=== PATIENT | male | born 1965 | race Asian ===

== ENCOUNTER 2020-05-04 18:22 | Inpatient (IN) | payer OTHER, SELFPAY ==
[~2020-05-04] VITALS: Ht 170.2 cm; Wt 75.7 kg
[2020-05-04 18:35] VITALS: BP_SYST 166
[2020-05-04 19:41] LABS: BASOPHILS % (AUTO) 0.3 % (0.0-2.0); HEMATOCRIT 46.7 % (36-54); HEMOGLOBIN 15.8 g/dL (14.0-18.0); LYMPHOCYTES # (AUTO) 0.8 K/uL (1.0-5.5); LYMPHOCYTES % (AUTO) 12.6 % (20.5-51.5); MEAN CORPUSCULAR HEMOGLOBIN 29 pg (27-31); MEAN CORPUSCULAR HGB CONC 34 % (32-36); MEAN CORPUSCULAR VOLUME 85 fL (79.0-98.0); MONOCYTES # (AUTO) 0.5 K/uL (0.0-1.0); MONOCYTES % (AUTO) 7.5 % (1.7-9.3); NEUTROPHILS % (AUTO) 79.6 % (40.0-70.0); PLATELET COUNT (AUTO) 254 K/uL (130-430); RED BLOOD CELL COUNT(AUTO) 5.51 MIL/uL (4.2-6.2); RED CELL DISTRIBUTION WIDTH 13.2 % (9.0-15.0); WHITE BLOOD COUNT (AUTO) 6.3 K/uL (4.8-10.8)
[2020-05-04 19:48] LABS: CALCIUM 8.9 mg/dL (8.4-11.0); CREATININE 1.19 mg/dL (0.55-1.30); POTASSIUM 3.8 mmol/L (3.5-5.1)
[2020-05-04 19:49] LABS: C-REACTIVE PROTEIN QUANT 6.7 mg/dL (0-0.5)
[2020-05-04 19:55] LABS: ALBUMIN 3.3 g/dL (3.4-4.8); TOTAL BILIRUBIN 0.4 mg/dL (0.0-1.0)
[2020-05-04 20:03] LABS: BILIRUBIN,URINE NEGATIVE (NEGATIVE); BLOOD, URINE 1+ (NEGATIVE); COLOR,URINE YELLOW (YELLOW); GLUCOSE,URINE NEGATIVE (NEGATIVE); KETONES,URINE 1+ (NEGATIVE); LEUKOCYTE ESTERASE ,URINE NEGATIVE (NEGATIVE); NITRITE, URINE NEGATIVE (NEGATIVE); PROTEIN URINE 1+ (NEGATIVE); UROBILINOGEN,URINE 0.2 (0.2-1.0)
[2020-05-04 20:18] LABS: CKMB RELATIVE INDEX 0.4 (0.0-2.9); CREATINE KINASE MB 1.4 ng/mL (0-3.6)
[2020-05-04 20:21] LABS: CLARITY/URINE SLIGHTLY HAZY (CLEAR)
[2020-05-04 20:29] LABS: BACTERIA,URINE FEW /HPF (None Seen); MUCUS,URINE 2+ /LPF (None Seen); RBC,URINE 0-3 /HPF (0-3)
[2020-05-04 20:31] LABS: INR 0.9 (0.80-1.20); PROTHROMBIN TIME 9.4 SECS (9.5-12.5)
[2020-05-04] MEDS: AZITHROMYCIN 500 MG in NS 250 ML IV SCH (22:15)
[2020-05-04] MEDS ORDERED: HYDROcodone/ACETAMIN 5-325 MG TAB (NORCO/ VICODIN) PO PRN (22:15)
[2020-05-04] MEDS ORDERED: MORPHINE 2 MG/ML INJ. SYRINGE IVP PRN (22:15)
[2020-05-04] MEDS: DEXAMETHASONE SOD PHOSPHATE 4 MG/ML VIAL IVP SCH (22:30)
[2020-05-04] MEDS ORDERED: guaiFENesin 200 MG/CODEINE 20 MG/ 10 ML UDC PO PRN (22:30)
[2020-05-04] MEDS ORDERED: AZITHROMYCIN 500 MG/VIAL (ZITHROMAX) IV ONE (22:52)
[2020-05-04] MEDS ORDERED: cefTRIAXone 2 GM VIAL ONE (22:52)
[2020-05-04] MEDS: ENOXAPARIN SODIUM 40 MG/0.4 ML SYRINGE SUBCUT SCH (22:54)
[2020-05-05 01:00] VITALS: BP_SYST 154
[2020-05-05] MEDS: NORMAL SALINE 5 ML DISP.SYRIN IVF SCH ×3 (05:24→21:25)
[2020-05-05 06:42] LABS: CALCIUM 8.1 mg/dL (8.4-11.0); CREATININE 1.11 mg/dL (0.55-1.30); POTASSIUM 3.7 mmol/L (3.5-5.1)
[2020-05-05 06:44] LABS: BASOPHILS % (AUTO) 0.1 % (0.0-2.0); HEMATOCRIT 42.8 % (36-54); HEMOGLOBIN 14.5 g/dL (14.0-18.0); LYMPHOCYTES # (AUTO) 0.4 K/uL (1.0-5.5); LYMPHOCYTES % (AUTO) 6.9 % (20.5-51.5); MEAN CORPUSCULAR HEMOGLOBIN 28 pg (27-31); MEAN CORPUSCULAR HGB CONC 34 % (32-36); MEAN CORPUSCULAR VOLUME 84 fL (79.0-98.0); MONOCYTES # (AUTO) 0.1 K/uL (0.0-1.0); MONOCYTES % (AUTO) 2.3 % (1.7-9.3); NEUTROPHILS # (AUTO) 4.6 K/uL (1.8-7.7); NEUTROPHILS % (AUTO) 90.7 % (40.0-70.0); PLATELET COUNT (AUTO) 254 K/uL (130-430); RED BLOOD CELL COUNT(AUTO) 5.09 MIL/uL (4.2-6.2); WHITE BLOOD COUNT (AUTO) 5.1 K/uL (4.8-10.8)
[2020-05-05 06:48] LABS: ALBUMIN 2.9 g/dL (3.4-4.8); TOTAL BILIRUBIN 0.3 mg/dL (0.0-1.0)
[2020-05-05 07:19] LABS: C-REACTIVE PROTEIN QUANT 6.7 mg/dL (0-0.5)
[2020-05-05 08:51] VITALS: BP_SYST 151
[2020-05-05] MEDS: DEXAMETHASONE SOD PHOSPHATE 4 MG/ML VIAL IVP SCH (09:00)
[2020-05-05] MEDS: ENOXAPARIN SODIUM 40 MG/0.4 ML SYRINGE SUBCUT SCH ×2 (09:00→21:20)
[2020-05-05 11:48] VITALS: BP_SYST 147
[2020-05-05 12:00] VITALS: BP_SYST 150
[2020-05-05 16:37] VITALS: BP_SYST 148
[2020-05-05 21:23] VITALS: BP_SYST 126
[2020-05-05] MEDS: AZITHROMYCIN 500 MG in NS 250 ML IV SCH (21:25)
[2020-05-06 01:42] VITALS: BP_SYST 147
[2020-05-06] MEDS: NORMAL SALINE 5 ML DISP.SYRIN IVF SCH ×3 (05:00→21:20)
[2020-05-06 08:00] VITALS: BP_SYST 136
[2020-05-06] MEDS: ENOXAPARIN SODIUM 40 MG/0.4 ML SYRINGE SUBCUT SCH ×2 (10:06→21:19)
[2020-05-06] MEDS: DEXAMETHASONE SOD PHOSPHATE 4 MG/ML VIAL IVP SCH (10:06)
[2020-05-06 10:21] LABS: CALCIUM 8.5 mg/dL (8.4-11.0); CREATININE 1.26 mg/dL (0.55-1.30); POTASSIUM 3.6 mmol/L (3.5-5.1)
[2020-05-06 10:27] LABS: TOTAL BILIRUBIN 0.2 mg/dL (0.0-1.0)
[2020-05-06] MEDS ORDERED: ASCORBIC ACID 500 MG TABLET PO ONE (12:00)
[2020-05-06] MEDS ORDERED: CHOLECALCIFEROL (VITAMIN D3) 5,000 UNIT TABLET PO ONE (12:00)
[2020-05-06 12:16] VITALS: BP_SYST 136
[2020-05-06 16:18] VITALS: BP_SYST 144
[2020-05-06 20:00] VITALS: BP_SYST 141
[2020-05-06 21:47] VITALS: BP_SYST 144
[2020-05-06] MEDS ORDERED: AZITHROMYCIN 500 MG/VIAL (ZITHROMAX) IV ONE (21:48)
[2020-05-06] MEDS: AZITHROMYCIN 500 MG in NS 250 ML IV SCH (22:46)
[2020-05-07 00:20] VITALS: BP_SYST 132
[2020-05-07] MEDS: NORMAL SALINE 5 ML DISP.SYRIN IVF SCH ×3 (06:14→23:26)
[2020-05-07 07:50] VITALS: BP_SYST 138
[2020-05-07] MEDS: CHOLECALCIFEROL (VITAMIN D3) 5,000 UNIT TABLET PO SCH (07:57)
[2020-05-07] MEDS: ENOXAPARIN SODIUM 40 MG/0.4 ML SYRINGE SUBCUT SCH ×2 (07:57→21:00)
[2020-05-07] MEDS: ASCORBIC ACID 500 MG TABLET PO SCH (07:57)
[2020-05-07] MEDS: DEXAMETHASONE SOD PHOSPHATE 4 MG/ML VIAL IVP SCH (07:57)
[2020-05-07 10:51] LABS: HEMATOCRIT 44.5 % (36-54); HEMOGLOBIN 14.7 g/dL (14.0-18.0); LYMPHOCYTES # (AUTO) 0.3 K/uL (1.0-5.5); LYMPHOCYTES % (AUTO) 2.3 % (20.5-51.5); MEAN CORPUSCULAR HEMOGLOBIN 28 pg (27-31); MEAN CORPUSCULAR HGB CONC 33 % (32-36); MEAN CORPUSCULAR VOLUME 86 fL (79.0-98.0); MONOCYTES # (AUTO) 0.9 K/uL (0.0-1.0); MONOCYTES % (AUTO) 7.2 % (1.7-9.3); NEUTROPHILS # (AUTO) 11.5 K/uL (1.8-7.7); NEUTROPHILS % (AUTO) 90.5 % (40.0-70.0); PLATELET COUNT (AUTO) 382 K/uL (130-430); RED CELL DISTRIBUTION WIDTH 13.1 % (9.0-15.0); WHITE BLOOD COUNT (AUTO) 12.7 K/uL (4.8-10.8)
[2020-05-07 10:54] LABS: CALCIUM 8.1 mg/dL (8.4-11.0); CREATININE 1.16 mg/dL (0.55-1.30); POTASSIUM 3.7 mmol/L (3.5-5.1); TOTAL BILIRUBIN 0.3 mg/dL (0.0-1.0)
[2020-05-07 12:18] VITALS: BP_SYST 130
[2020-05-07 16:06] VITALS: BP_SYST 147
[2020-05-07 20:00] VITALS: BP_SYST 130
[2020-05-07] MEDS: AZITHROMYCIN 500 MG in NS 250 ML IV SCH (23:26)
[2020-05-08] MEDS: NORMAL SALINE 5 ML DISP.SYRIN IVF SCH ×3 (05:27→22:45)
[2020-05-08] MEDS: ASCORBIC ACID 500 MG TABLET PO SCH (09:00)
[2020-05-08] MEDS: CHOLECALCIFEROL (VITAMIN D3) 5,000 UNIT TABLET PO SCH (09:00)
[2020-05-08] MEDS: ENOXAPARIN SODIUM 40 MG/0.4 ML SYRINGE SUBCUT SCH ×2 (09:00→21:00)
[2020-05-08] MEDS: DEXAMETHASONE SOD PHOSPHATE 4 MG/ML VIAL IVP SCH (09:00)
[2020-05-08 11:27] LABS: ALBUMIN 2.8 g/dL (3.4-4.8); CREATININE 1.11 mg/dL (0.55-1.30); POTASSIUM 3.7 mmol/L (3.5-5.1); TOTAL BILIRUBIN 0.2 mg/dL (0.0-1.0)
[2020-05-08 12:34] VITALS: BP_SYST 131
[2020-05-08 16:05] VITALS: BP_SYST 144
[2020-05-08 20:00] VITALS: BP_SYST 138
[2020-05-08] MEDS: AZITHROMYCIN 500 MG in NS 250 ML IV SCH (22:45)
[2020-05-09] MEDS: NORMAL SALINE 5 ML DISP.SYRIN IVF SCH ×3 (05:09→21:21)
[2020-05-09 08:00] VITALS: BP_SYST 147
[2020-05-09 09:57] LABS: CALCIUM 8.2 mg/dL (8.4-11.0); CREATININE 1.06 mg/dL (0.55-1.30); POTASSIUM 4.2 mmol/L (3.5-5.1); TOTAL BILIRUBIN 0.4 mg/dL (0.0-1.0)
[2020-05-09 10:10] LABS: BILIRUBIN,DIRECT 0.1 mg/dL (0.0-0.3)
[2020-05-09] MEDS: ASCORBIC ACID 500 MG TABLET PO SCH (10:12)
[2020-05-09] MEDS: ENOXAPARIN SODIUM 40 MG/0.4 ML SYRINGE SUBCUT SCH ×2 (10:12→21:35)
[2020-05-09] MEDS: CHOLECALCIFEROL (VITAMIN D3) 5,000 UNIT TABLET PO SCH (10:12)
[2020-05-09] MEDS: DEXAMETHASONE SOD PHOSPHATE 4 MG/ML VIAL IVP SCH (10:12)
[2020-05-09 11:22] LABS: C-REACTIVE PROTEIN QUANT 1.2 mg/dL (0-0.5)
[2020-05-09 12:01] VITALS: BP_SYST 123
[2020-05-09 16:00] VITALS: BP_SYST 115
[2020-05-09 17:10] VITALS: BP_SYST 123
[2020-05-09 20:00] VITALS: BP_SYST 135
[2020-05-10] MEDS: NORMAL SALINE 5 ML DISP.SYRIN IVF SCH ×3 (05:50→22:27)
[2020-05-10 08:00] VITALS: BP_SYST 138
[2020-05-10] MEDS: ENOXAPARIN SODIUM 40 MG/0.4 ML SYRINGE SUBCUT SCH ×2 (09:00→21:00)
[2020-05-10] MEDS: DEXAMETHASONE SOD PHOSPHATE 4 MG/ML VIAL IVP SCH (09:00)
[2020-05-10] MEDS: CHOLECALCIFEROL (VITAMIN D3) 5,000 UNIT TABLET PO SCH (09:00)
[2020-05-10] MEDS: ASCORBIC ACID 500 MG TABLET PO SCH (09:00)
[2020-05-10 20:00] VITALS: BP_SYST 132
[2020-05-11] MEDS: NORMAL SALINE 5 ML DISP.SYRIN IVF SCH ×2 (06:36→14:40)
[2020-05-11 06:54] LABS: BASOPHILS % (AUTO) 0.1 % (0.0-2.0); EOSINOPHILS % (AUTO) 0.2 % (0.0-4.0); HEMATOCRIT 43.9 % (36-54); LYMPHOCYTES # (AUTO) 0.7 K/uL (1.0-5.5); LYMPHOCYTES % (AUTO) 6.7 % (20.5-51.5); MEAN CORPUSCULAR HEMOGLOBIN 29 pg (27-31); MEAN CORPUSCULAR HGB CONC 34 % (32-36); MEAN CORPUSCULAR VOLUME 85 fL (79.0-98.0); MONOCYTES % (AUTO) 10.2 % (1.7-9.3); NEUTROPHILS # (AUTO) 8.3 K/uL (1.8-7.7); NEUTROPHILS % (AUTO) 82.8 % (40.0-70.0); PLATELET COUNT (AUTO) 422 K/uL (130-430); RED BLOOD CELL COUNT(AUTO) 5.19 MIL/uL (4.2-6.2); RED CELL DISTRIBUTION WIDTH 13.2 % (9.0-15.0)
[2020-05-11 07:29] LABS: ALBUMIN 2.9 g/dL (3.4-4.8); CALCIUM 8.5 mg/dL (8.4-11.0); CREATININE 1.09 mg/dL (0.55-1.30); POTASSIUM 4.4 mmol/L (3.5-5.1); TOTAL BILIRUBIN 0.5 mg/dL (0.0-1.0)
[2020-05-11 08:00] VITALS: BP_SYST 122
[2020-05-11] MEDS: ENOXAPARIN SODIUM 40 MG/0.4 ML SYRINGE SUBCUT SCH (09:00)
[2020-05-11] MEDS: ASCORBIC ACID 500 MG TABLET PO SCH (09:34)
[2020-05-11] MEDS: DEXAMETHASONE SOD PHOSPHATE 4 MG/ML VIAL IVP SCH (09:34)
[2020-05-11] MEDS: CHOLECALCIFEROL (VITAMIN D3) 5,000 UNIT TABLET PO SCH (09:34)
[2020-05-11 12:00] VITALS: BP_SYST 122
[2020-05-11 12:39] VITALS: BP_SYST 122
[2020-05-11 16:00] VITALS: BP_SYST 116
== END 2020-05-11 20:00 | disposition home or self-care (01) | DRG 871 ==
LOC: SED 18:22 → STU 22:13 → SMU 05-11 11:25
PROVIDERS: ADMIT Internal Medicine Hospice and Palliative Medicine; ATTEND Internal Medicine Hospice and Palliative Medicine
PROC: XW13325 Transfusion of Convalescent Plasma (Nonautologous) into Peripheral Vein, Percutaneous Approach, New Technology Group 5 (ICD-10-PCS; principal; 2020-05-05)
PROC: XW033E5 Introduction of Remdesivir Anti-infective into Peripheral Vein, Percutaneous Approach, New Technology Group 5 (ICD-10-PCS; 2020-05-05)
DX: A41.89 Other specified sepsis (principal); U07.1 COVID-19; J12.82 Pneumonia due to coronavirus disease 2019; J96.01 Acute respiratory failure with hypoxia; N39.0 Urinary tract infection, site not specified; J44.0 Chronic obstructive pulmonary disease with (acute) lower respiratory infection; J44.1 Chronic obstructive pulmonary disease with (acute) exacerbation; E88.09 Other disorders of plasma-protein metabolism, not elsewhere classified; F17.200 Nicotine dependence, unspecified, uncomplicated; Z71.6 Tobacco abuse counseling
CPT/HCPCS: 36415; 36600; 71045; 80053; 80076; 81000-TC; 82550-TC; 82553-TC; 82728; 82803-TC; 83605; 83615-TC; 83880; 84484; 85025; 85379; 85384-TC; 85610-TC; 85730-TC; 86140; 86886; 86900; 86901; 87040-TC; 87086; 93005; 94760; 96365; 99291; C1751; G0378; J0456; J0696; J1100; J1650; J7040; J7050; J7060; P9017